=== PATIENT | male | born 1995 | race Caucasian/White ===

== ENCOUNTER 2019-12-22 18:59 | Emergency (ER) | payer OTHER ==
[2019-12-22] MEDS ORDERED: RALTEGRAVIR POTASSIUM 400 MG TAB PO ONE (20:08)
[2019-12-22] MEDS ORDERED: EMTRICITABINE 200MG/TENOFOVIR 300MG PO ONE (20:08)
[2019-12-22 20:32] VITALS: BP 123/69; PULSE 73; TEMP 98.9; BMI 24.3
[2019-12-22] MEDS ORDERED: HIV POST EXPOSURE PROPHYLAXIS KIT PO ONE (21:10)
[2019-12-22 21:17] LABS: BASO % 0.7 % (0-2.0); EOS % 1.6 % (0-4.5); HEMATOCRIT 45.8 % (35.4-49); HEMOGLOBIN 15.7 GM/dL (11.7-16.9); LYMPH % 26.5 % (8-40); MCH 30.5 pg (25.7-33.7); MCHC 34.3 g/dl (32.0-35.9); MEAN PLT VOLUME 12.1 fl (7.5-11.1); MONO % 4.9 % (3.8-10.2); NEUT % 66.3 % (42.8-82.8); RBC 5.15 M/mm3 (4.00-5.60); RDW 13.5 % (11.9-15.9); WHITE BLOOD COUNT 11.3 K/mm3 (4.0-10.0)
[2019-12-22 21:39] LABS: PLATELET COUNT 204 K/MM3 (134-434)
[2019-12-22 21:40] LABS: PLATELET ESTIMATE ADEQUATE
[2019-12-22 21:46] LABS: ALBUMIN 4.5 g/dl (3.4-5.0); BILIRUBIN,TOTAL 0.3 mg/dL (0.2-1); BLOOD UREA NITROGEN 15.2 mg/dL (7-18); CALCIUM 9.3 mg/dL (8.5-10.1); CREATININE 1.2 mg/dL (0.55-1.3); POTASSIUM 4.5 mmol/L (3.5-5.1); TOT PROT 7.7 g/dl (6.4-8.2)
[2019-12-23 15:38] LABS: HIV INTERPRETATION NEGATIVE (NEGATIVE)
== END 2019-12-22 21:49 | disposition home or self-care (01) ==
LOC: JERFT 18:59
DX: Z77.21 Contact with and (suspected) exposure to potentially hazardous body fluids (principal)
CPT/HCPCS: 36415; 80053; 85025; 86317; 86704; 86706; 86803; 87340; 87389; 99284-25